=== PATIENT | female | born 1960 | race Two or more races ===

== ENCOUNTER 2023-08-31 13:02 | Emergency (ER) | payer MEDICAID, SELFPAY ==
[2023-08-31 13:08] VITALS: BP 155/75
[2023-08-31 13:58] LABS: % Basophils 0.3 % (0-2); % Eosinophils 0.2 % (0-6); % Immature Granulocytes 0.5 % (0-0.5); % Lymphocytes 8.9 % (20.5-51.1); % Monocytes 5.5 % (1.7-9.3); % Neutrophils 84.6 % (42.2-75.2); Absolute Immature Granulocytes 0.1 10^3/uL (0-0.05); Absolute Lymphocytes 1.2 10^3/uL (1.2-3.4); Absolute Monocytes 0.7 10^3/uL (0.1-0.6); Absolute Neutrophils 11.1 10^3/uL (1.4-6.5); Hematocrit 38.4 % (37.0-47.0); Hemoglobin 13.7 g/dL (12.0-16.0); Mean Corp Hgb Conc. 35.7 g/dL (33.0-37.0); Mean Corpuscular Hgb 30.9 pg (27.0-31.0); Mean Corpuscular Volume 86.5 fL (81.0-99.0); Mean Platelet Volume 10.1 fL (7.4-10.4); Nucleated Red Blood Cells % 0 %; Platelet Count 221 10^3/uL (130-400); Red Blood Cell Count 4.44 10^6/uL (4.20-5.40); Red Cell Dist. Width 12.5 % (11.5-14.5); White Blood Cell Count 13.1 10^3/uL (4.8-10.8)
[2023-08-31 14:00] VITALS: BP 137/83
[2023-08-31 14:10] LABS: Lactic Acid 1.2 mmol/L (0.7-2.0)
[2023-08-31 14:12] LABS: ALT (SGPT) 51 U/L (0-35); AST (SGOT) 32 U/L (14-36); Albumin 4.7 g/dl (3.5-5.0); Alkaline Phosphatase 66 U/L (38-126); Blood Urea Nitrogen 17 mg/dl (7-17); Calcium 9.8 mg/dl (8.4-10.2); Carbon Dioxide 27 mmol/L (22-30); Chloride 100 mmol/L (98-107); Estimated Creatinine Clearance 97 ml/min; Glucose 108 mg/dl (70-99); Potassium 3.8 mmol/L (3.5-5.1); Sodium 135 mmol/L (135-145); Total Bilirubin 0.8 mg/dl (0.2-1.3); Total Protein 7.4 g/dl (6.3-8.2); eGFR > 60.00
--- NOTE | 2023-08-31 14:12 | ED.GENMED ---
History of Present Illness
General
Chief Complaint: Headache
Source: patient
Exam Limitations: none
Time Seen by Provider: 08/31/23 13:29
Nursing documentation reviewed up to this point in time: agreed with
Travel History
Have you had any contact with someone who has COVID-19?: No
Do you have any symptoms of coronavirus? Fever > 100 degrees, chills, cough, shortness of breath, sore throat, loss of taste or smell, muscle aches, or headache?: No
History of Present Illness
History of Present Illness:
63-year-old female presents to the ER for evaluation. Patient started with fevers chills around 4 am and has had diarrhea and nausea. Daughter lives in this area and went to pick patient up in [place]. She reports while in the car patient
got very pale and feeling she was going to pass out which is why she brought patient to the ER. Patient presents awake alert she complains of feeling generally achy nauseous and chills. She denies any urinary frequency urgency or dysuria. She
denies any cough sore throat. Denies any neck pain blurred vision.
Past History
Past History
ED Past Medical History: HTN, Hypercholesterolemia and ID
ED Past Surgical History: Appendectomy and Orthopedic (back surgery)
Social History
Tobacco: Non-smoker
Alcohol: None
Drug: None
Personal:
Living: with family
Review of Systems
Review of Systems
Allergies reviewed?: Yes
All Other Systems: ROS reviewed and negative except as documented in HPI and ROS
Constitutional: Reports fever, fatigue and chills
Respiratory: Reports no symptoms; Denies cough
Cardiac: Reports no symptoms
ABD/GI: Reports nausea and diarrhea
: Reports no symptoms
Musculoskeletal: Reports no symptoms
Neurological: Reports no symptoms
Hematologic/Lymphatic: Reports no symptoms
Psychiatric: Reports no symptoms
Phy Exam
General Physical Exam
General Presentation: no apparent distress
General age: appears stated age
General Skin: warm and dry
General Habitus: normal
General Mental: alert
General Hydration: appears well hydrated
ENT Exam
ENT Exam: EOMI, pharynx normal, neck supple and other
Eye Exam
Eye Exam: PERRL and EOMI
Eye Exam General: PERRL: bilateral and EOM intact: bilateral
Pupil Exam: Bilateral: round and reactive
Cardiovascular Exam
Cardiovascular Exam: regular rate/rhythm, no murmur and normal peripheral pulses
Pulmonary Exam
Pulmonary Exam: lungs clear and no respiratory distress
Neurological Exam
Neurological Exam: alert and oriented x3
Musculoskeletal Exam
Musculoskeletal Exam: full ROM
Skin Exam
Skin Exam: normal color and warm/dry
Psychiatric Exam
Psychiatric Exam: normal mood/affect
Course
Orders/Labs/Results
Orders:
Orders
08/31/23 13:45
CMP [Comprehensive Metabolic Panel] Urgent
Complete Blood Count/With Diff Urgent
Lactate Level [Lactic Acid] Urgent
Blood Culture Urgent
HEMA Source: Blood/Venous
Specimen Description:
08/31/23 14:11
Ketorolac [Toradol] 15 mg IV NOW STA
Ondansetron Injectable [Zofran] 4 mg IV NOW STA
08/31/23 14:38
COVID-19 Antigen Urgent
Source: Nasal Swab
Troponin I Urgent
UA Reflex to Culture [Urinalysis Reflex To Culture] Urgent
Date Specimen was Collected: 08/31/23
Time Specimen was Collected: 14:36
Urine Microscopic Reflex Cult Urgent
Influenza A+B Rapid Molecular Urgent
HEMA Source: Nasal Swab
Specimen Description:
08/31/23 14:44
Acetaminophen [Tylenol] 650 mg PO NOW STA
08/31/23 14:45
0.9% Sodium Chloride 1000 ml [Nss] 1,000 ml IV BOLUS
Abnormal Lab Results
08/31/23 08/31/23
13:45 14:38
WBC 13.1 H 10^3/uL
(4.8-10.8)
Abs Immat Gran (auto) 0.1 H 10^3/uL
(0-0.05)
Absolute Neuts (auto) 11.1 H 10^3/uL
(1.4-6.5)
Absolute Monos (auto) 0.7 H 10^3/uL
(0.1-0.6)
Neutrophils % 84.6 H %
(42.2-75.2)
Lymphocytes % 8.9 L %
(20.5-51.1)
Glucose 108 H mg/dl
(70-99)
ALT 51 H U/L
(0-35)
Leukocyte Esterase Rfl Trace A
(Negative)
Urine Bacteria (Reflex) Few A
(Negative)
08/31/23 13:45
08/31/23 13:45
Vital Signs
Initial and Last Documented VS:
Initial Vital Signs
Temp
100.6 F H
08/31/23 13:06
Last Documented Vital Signs
Temp Pulse Resp BP Pulse Ox
99.7 F 91 20 114/45 93
08/31/23 15:33 08/31/23 15:00 08/31/23 15:00 08/31/23 15:00 08/31/23 15:00
MDM/Problems Addressed
Differential Diagnosis Includes:
Not limited to COVID flu viral syndrome
MDM/Problems Addressed:
Patient is a 63-year-old female who presents to the ER complaining of fevers started with nausea vomiting diarrhea headache. Patient presents brought with daughter. Patient presents with a low-grade temperature of 100.6 .
Patient denies any cough runny nose nasal congestion sore throat. Patient did have some diarrhea and nausea vomiting. Patient was given fluids here treated for fever and monitored. She denies any UTI symptoms. On exam she is awake alert no acute
distress no meningismus white count elevated at 13.1 no acute abnormalities on chemistries. No acute findings on urinalysis negative for COVID-negative for flu. Patient presents awake alert no acute distress likely viral syndrome. Patient feeling
much better here eating and drinking ambulatory back and forth to the bathroom. We discussed chest x-ray however patient/daughter decline and this is reasonable given the fact the patient's lungs are clear and she has had no complaints of cough.
Discussed supportive care for fever viral syndrome discussed close outpatient follow-up with family doctor and to return if any worsening of symptoms
*Critical Care Note
Total Time (30-74mins, 75-104mins- exclusive of procedures): Not Applicable
ED Attending Note
-
Portions of this chart may have been created with voice recognition software.� Occasional wrong word or��sound alike� substitutions may have occurred due to the inherent limitations of voice recognition software.
Discharge Plan
Departure
Patient Disposition: Home (Routine Discharge)
Date of Disposition: 08/31/23
Time of Disposition: 17:19
Patient with high blood pressure during this ER visit?: Yes
Condition: Fair
Covid-19: Not Applicable
Discharge Problem:
Acute viral syndrome, Fever
Instructions: Fever, Adult (DC), Viral Syndrome (DC), BLOOD PRESSURE
Prescriptions:
No Action
amlodipine 5 mg Tablet
5 mg PO DAILY
aspirin 81 mg Tablet,Delayed Release (Dr/Ec)
81 mg PO HS
acetaminophen [Tylenol Extra Strength] 500 mg Tablet
1,000 mg PO Q6H
gabapentin 300 mg Capsule
300 mg PO DAILY PRN (Reason: nerve pain)
piroxicam 10 mg Capsule
10 mg PO BID PRN (Reason: headache)
hydrochlorothiazide 25 mg Tablet
25 mg PO DAILY
Patient Comments:
08/31/2023, last filled on 03/19/2023 for 90-day supply.
valsartan 160 mg Tablet
160 mg PO BID
rosuvastatin 10 mg Tablet
10 mg PO DAILY
Vitamin C
1 tab PO DAILYPRN PRN (Reason: supplement)
Referrals:
Frederick Weinberg MD [Family Provider] -
Activity Restrictions/Additional Instructions:
As discussed symptoms are likely viral syndrome. Be sure to increase fluids. You may alternate between ibuprofen and Tylenol for fever body aches chills. Follow-up closely with your family doctor in the next 2 to 3 days for reevaluation return if
any worsening of symptoms.
Interventions
Interventions:
*Risk Screen - Suicide Last Done: 08/31/23 13:06
*General Assessment Last Done: 08/31/23 13:06
*Neglect/Abuse Screening Last Done: 08/31/23 13:06
ED- Neurological Assessment Last Done: 08/31/23 13:57
Discharge Date and Time
Print Language: KYRGYZ
[2023-08-31] MEDS: ZOFRAN 4 MG IV (14:30)
[2023-08-31] MEDS: TORADOL 15 MG IV (14:30)
[2023-08-31 14:50] LABS: Urine Albumin Negative (Neg - Trace); Urine Bilirubin Negative (Negative); Urine Character Clear (Clear); Urine Color Yellow; Urine Glucose Negative (Negative); Urine Ketone Negative (Negative); Urine Leukocyte Trace (Negative); Urine Nitrite Negative (Negative); Urine Occult Blood Negative (Negative); Urine Specific Gravity 1.015 (<1.030); Urine Urobilinogen Negative (Neg - 1+)
[2023-08-31] MEDS: TYLENOL 650 MG PO (14:54)
[2023-08-31] MEDS: NSS 1000 IV (14:57)
[2023-08-31 15:00] VITALS: BP 114/45
[2023-08-31 15:04] LABS: COVID-19 Antigen Negative (Negative)
[2023-08-31 15:05] LABS: Urine Bacteria Few (Negative); Urine Red Blood Cell 0-2 /HPF (0-2); Urine White Cell 0-2 /HPF (0-5)
[2023-08-31 15:14] LABS: Troponin I < 0.012 ng/ml
== END 2023-08-31 18:00 | disposition home or self-care (01) ==
LOC: EMR 13:02
PROVIDERS: Emergency Medicine; Nurse Practitioner; EMERGENCY PHYSICIAN Student in an Organized Health Care Education/Training Program; FAMILY PHYSICIAN Internal Medicine
DX: B34.9 Viral infection, unspecified (principal); R50.9 Fever, unspecified; R11.2 Nausea with vomiting, unspecified; R19.7 Diarrhea, unspecified; R51.9 Headache, unspecified; Z11.52 Encounter for screening for COVID-19; I10 Essential (primary) hypertension; E78.00 Pure hypercholesterolemia, unspecified; I25.2 Old myocardial infarction; Z79.82 Long term (current) use of aspirin
CPT/HCPCS: 99284; 96374; 96375; 96361; 80053; 81003; 81015; 83605; 84484; 85025; 87040; 87502; 87811

== ENCOUNTER 2023-11-17 10:46 | Emergency (ER) | payer MEDICAID, SELFPAY ==
[2023-11-17 10:49] VITALS: BP 132/77
[2023-11-17 11:50] VITALS: BP 126/74; BMI 28.5
[2023-11-17 12:00] VITALS: BP 118/69
[2023-11-17 12:30] LABS: % Basophils 0.5 % (0-2); % Eosinophils 1.7 % (0-6); % Immature Granulocytes 0.2 % (0-0.5); % Lymphocytes 36.3 % (20.5-51.1); % Monocytes 8.5 % (1.7-9.3); % Neutrophils 52.8 % (42.2-75.2); Absolute Eosinophils 0.1 10^3/uL (0-0.7); Absolute Lymphocytes 2.1 10^3/uL (1.2-3.4); Absolute Monocytes 0.5 10^3/uL (0.1-0.6); Hematocrit 36.6 % (37.0-47.0); Hemoglobin 12.5 g/dL (12.0-16.0); Mean Corp Hgb Conc. 34.2 g/dL (33.0-37.0); Mean Corpuscular Volume 87.8 fL (81.0-99.0); Mean Platelet Volume 10.4 fL (7.4-10.4); Nucleated Red Blood Cells % 0 %; Platelet Count 228 10^3/uL (130-400); Red Blood Cell Count 4.17 10^6/uL (4.20-5.40); Red Cell Dist. Width 12.6 % (11.5-14.5); White Blood Cell Count 5.8 10^3/uL (4.8-10.8)
[2023-11-17 12:43] LABS: Urine Albumin Negative (Neg - Trace); Urine Bilirubin Negative (Negative); Urine Character Clear (Clear); Urine Color Yellow; Urine Glucose Negative (Negative); Urine Ketone Negative (Negative); Urine Leukocyte Negative (Negative); Urine Nitrite Negative (Negative); Urine Occult Blood Negative (Negative); Urine Urobilinogen Negative (Neg - 1+)
[2023-11-17 12:46] LABS: ALT (SGPT) 40 U/L (0-35); AST (SGOT) 35 U/L (14-36); Albumin 4.6 g/dl (3.5-5.0); Alkaline Phosphatase 53 U/L (38-126); Blood Urea Nitrogen 17 mg/dl (7-17); Calcium 9.9 mg/dl (8.4-10.2); Carbon Dioxide 29 mmol/L (22-30); Chloride 101 mmol/L (98-107); Estimated Creatinine Clearance 82 ml/min; Glucose 96 mg/dl (70-99); Lipase 112 U/L (23-300); Potassium 3.9 mmol/L (3.5-5.1); Sodium 138 mmol/L (135-145); Total Protein 6.8 g/dl (6.3-8.2); eGFR > 60.00
[2023-11-17 13:00] VITALS: BP 120/61
--- NOTE | 2023-11-17 13:12 | ED.GENMED ---
History of Present Illness
General
Chief Complaint: Abdominal Pain
Source: patient
Exam Limitations: none
Time Seen by Provider: 11/17/23 11:06
History of Present Illness
History of Present Illness:
63-year-old female complaining of left lower quadrant pain. Progressive over 3 weeks. No fever. Some chills. No vomiting urinary symptoms or bowel symptoms. No history of same.
Past History
Past History
ED Past Medical History: HTN, Hypercholesterolemia and PR
ED Past Surgical History: Appendectomy and Orthopedic (back surgery)
Social History
Tobacco: Non-smoker
Alcohol: None
Drug: None
Personal:
Living: with family
Review of Systems
Review of Systems
All Other Systems: Not applicable
Constitutional: Reports chills; Denies fever
Phy Exam
Physical Exam
Physical Exam:
GENERAL: Alert and oriented in no apparent distress
EYE: Orbits normal.
NECK: Supple
CARDIAC: Regular rate and rhythm without any obvious murmurs.
LUNGS: Clear breath sounds,normal
ABDOMEN: Soft, mild reproducible left lower quadrant tenderness. No rebound or guarding mass or hernia. No CVA tenderness
NEUROLOGICAL: Alert and oriented , grossly non-focal
SKIN: Warm and dry, no rash or lesion, no discoloration, skin intact.
MUSCULOSKELETAL: No edema,no deformity.Good color
PSYCH: Normal and appropriate interaction.
Course
Orders/Labs/Results
Orders:
Orders
11/17/23 11:54
IV Insert/Care/Rem.- Treatment PRN
11/17/23 11:57
Complete Blood Count/With Diff Urgent
Comprehensive Metabolic Panel Urgent
Lipase Urgent
11/17/23 12:01
Add On- LAB Urgent
Tests Added?: lipase
11/17/23 12:02
CT Abd/Pel (IV only)-DH only Urgent
Comment:
Reason For Exam: Left lower quadrant abdominal pain
11/17/23 12:31
Urinalysis Reflex To Culture Urgent
Date Specimen was Collected: 11/17/23
Time Specimen was Collected: 12:12
11/17/23 15:45
Amoxicillin 875 mg/Clav 125 mg [Augmentin 875 mg/125 mg] 1 tablet PO NOW STA
Abnormal Lab Results
11/17/23
11:57
RBC 4.17 L 10^6/uL
(4.20-5.40)
Hct 36.6 L %
(37.0-47.0)
ALT 40 H U/L
(0-35)
11/17/23 11:57
11/17/23 11:57
Vital Signs
Initial and Last Documented VS:
Initial Vital Signs
Temp Pulse Resp BP Pulse Ox
97.9 F 70 18 132/77 97
11/17/23 10:49 11/17/23 10:49 11/17/23 10:49 11/17/23 10:49 11/17/23 10:49
Last Documented Vital Signs
Temp Pulse Resp BP Pulse Ox
98.5 F 62 20 117/75 96
11/17/23 16:15 11/17/23 16:15 11/17/23 16:15 11/17/23 16:15 11/17/23 16:15
MDM/Problems Addressed
Differential Diagnosis Includes:
Moderately suspicious for diverticulitis. Kidney stone would also be a viable diagnosis. Workup in progress
*Radiology
Radiology exam reviewed: radiology read reviewed (Epiploic appendagitis/mesenteric panniculitis)
*Pulse Oximetry
Patient hypoxic: no
*Critical Care Note
Total Time (30-74mins, 75-104mins- exclusive of procedures): Not Applicable
Update Note
Update Note:
Patient with epiploic appendagitis/panniculitis. Nonsurgical management. Anti-inflammatories and follow-up. We will cover with antibiotics
ED Attending Note
-
Portions of this chart may have been created with voice recognition software.� Occasional wrong word or��sound alike� substitutions may have occurred due to the inherent limitations of voice recognition software.
Discharge Plan
Departure
Patient Disposition: Home (Routine Discharge)
Date of Disposition: 11/17/23
Time of Disposition: 15:44
Patient with high blood pressure during this ER visit?: Yes
Discharge Problem:
Epiploic appendagitis, Mesenteric panniculitis
Instructions: Abdominal Pain, BLOOD PRESSURE
Prescriptions:
New
amoxicillin-pot clavulanate 875-125 mg tablet
1 tab PO BID Qty: 14 0RF
No Action
amlodipine 5 mg Tablet
5 mg PO DAILY
aspirin 81 mg Tablet,Delayed Release (Dr/Ec)
81 mg PO HS
acetaminophen [Tylenol Extra Strength] 500 mg Tablet
1,000 mg PO Q6H
gabapentin 300 mg Capsule
300 mg PO DAILY PRN (Reason: nerve pain)
piroxicam 10 mg Capsule
10 mg PO BID PRN (Reason: headache)
hydrochlorothiazide 25 mg Tablet
25 mg PO DAILY
Patient Comments:
08/31/2023, last filled on 03/19/2023 for 90-day supply.
valsartan 160 mg Tablet
160 mg PO BID
rosuvastatin 10 mg Tablet
10 mg PO DAILY
Vitamin C
1 tab PO DAILYPRN PRN (Reason: supplement)
Referrals:
Frederick Weinberg MD [Family Provider] - Follow up in 2-3 days
Interventions
Interventions:
*Risk Screen - Suicide Last Done: 11/17/23 11:50
*General Assessment Last Done: 11/17/23 11:50
*Neglect/Abuse Screening Last Done: 11/17/23 11:50
ED- Fall Risk Assessment Last Done: 11/17/23 11:50
*ED COVID-19 Vaccine History Last Done: 11/17/23 11:50
*Nursing Disposition Last Done: 11/17/23 16:15
[id number] Assessment Last Done: 11/17/23 11:50
Discharge Date and Time
Discharge Date/Time: 11/17/23 16:17
Print Language: CROATIAN
[2023-11-17 14:11] VITALS: BP 137/74
[2023-11-17] MEDS: AUGMENTIN 875 MG/125 MG 1 TABLET PO (15:52)
[2023-11-17 16:15] VITALS: BP 117/75
== END 2023-11-17 16:17 | disposition home or self-care (01) ==
LOC: EMR 10:46
PROVIDERS: EMERGENCY PHYSICIAN Emergency Medicine; FAMILY PHYSICIAN Internal Medicine
DX: K63.89 Other specified diseases of intestine (principal); K65.4 Sclerosing mesenteritis; I10 Essential (primary) hypertension; E78.00 Pure hypercholesterolemia, unspecified; I25.2 Old myocardial infarction
CPT/HCPCS: 99284; 74177; 80053; 81003; 83690; 85025; Q9967